=== PATIENT | female | born 1990 | race African-American/Black ===

== ENCOUNTER 2019-06-08 09:32 | Emergency (ER) | payer OTHER, MEDICAID ==
[~2019-06-08] VITALS: Ht 170.2 cm; Wt 59.0 kg
[2019-06-08] MEDS ORDERED: IBUPROFEN 800 MG TAB PO ONE (11:15)
[2019-06-08] MEDS ORDERED: METHOCARBAMOL 500 MG TAB PO ONE (11:30)
[2019-06-08 11:36] VITALS: BP 120/77
== END 2019-06-08 12:42 | disposition home or self-care (01) ==
LOC: ER 09:32
DX: M54.5 Low back pain (principal); M62.838 Other muscle spasm; V43.62XA Car passenger injured in collision with other type car in traffic accident, initial encounter; Y93.89 Activity, other specified; Y92.410 Unspecified street and highway as the place of occurrence of the external cause; Y99.8 Other external cause status
CPT/HCPCS: 72070